=== PATIENT | female | born 1995 | race Two or more races ===

== ENCOUNTER 2018-06-27 16:03 | Emergency (ER) | payer SELFPAY ==
[~2018-06-27] VITALS: Ht 160 cm; Wt 62.7 kg
[~2018-06-27 16:03] MED LIST: NAPR220T66 PO
[2018-06-27 16:10] VITALS: BP 123/63
--- NOTE | 2018-06-27 16:19 | NUR ---
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
[2018-06-27] MEDS ORDERED: LORazepam 1MG TABLET PO ONE (16:30)
[2018-06-27] MEDS ORDERED: LORazepam 0.5MG TABLET ONE (16:37)
[2018-06-27 17:12] LABS: BASOPHILS # (AUTO) 0.02 x10^3/uL (0-0.3); BASOPHILS % (AUTO) 0 % (0-1); EOSINOPHILS # (AUTO) 0.05 x10^3/uL (0-0.8); EOSINOPHILS % (AUTO) 1 % (1-7); LYMPHOCYTES # (AUTO) 2.37 x10^3/uL (1-6.1); LYMPHOCYTES % (AUTO) 32 % (22-44); MD NO; MEAN CORPUSCULAR HEMOGLOBIN 30.5 pg (27.0-34.8); MEAN CORPUSCULAR HGB CONC 34.2 g/dL (32.4-35.8); MEAN CORPUSCULAR VOLUME 89.3 fL (80-100); MEAN PLATELET VOLUME 8.2 fL (7.4-10.4); MONOCYTES # (AUTO) 0.42 x10^3/uL (0-1.4); MONOCYTES % (AUTO) 6 % (2-9); NEUTROPHILS # (AUTO) 4.63 x10^3/uL (1.8-8.0); NEUTROPHILS % (AUTO) 62 % (42-75); PLATELET COUNT 278 x10^3/uL (130-400); RED BLOOD COUNT 5.33 x10^6/uL (3.82-5.3); RED CELL DISTRIBUTION WIDTH 13.6 % (9.6-15.2)
--- NOTE | 2018-06-27 17:12 | NUR ---
REPORTS FEELING BETTER
[2018-06-27 17:23] LABS: ANION GAP 7 mmol/L (5-15); CALCIUM 9.2 mg/dL (8.5-10.1); CHLORIDE 107 mmol/L (98-107)
[2018-06-27 17:28] LABS: CREATININE 0.89 mg/dL (0.55-1.02); TROPONIN I < 0.015 ng/mL (0.000-0.045)
== END 2018-06-27 18:16 | disposition home or self-care (01) ==
LOC: ED 17:55
DX: R06.00 Dyspnea, unspecified (principal)
CPT/HCPCS: 36415; 71045; 80048; 82040; 84484; 84703; 85025; 85379; 93005; 99284